=== PATIENT | male | born 1935 | race Caucasian/White ===

== ENCOUNTER 2020-09-28 09:36 | Outpatient (CLI) | payer OTHER, SELFPAY ==
--- NOTE | ~2020-09-28 | XR_ITS ---
XR chest 2V DATE: 09/28/2020 09:54 INDICATION: Shortness of breath. Chronic obstructive pulmonary disease. TECHNIQUE: PA and lateral views COMPARISON: 06/06/2019 portable AP chest FINDINGS: Status post sternotomy and probable coronary bypass graft surgery. Heart size is within nor mal range. There is aortic arch calcification, mild aortic unfolding. There is mild discoid atelectasis or more likely scarring in the lower lung zones. There is chronic b lunting of the costophrenic angles. No interval pulmonary consolidation, pleural effusion, pulmonary congestion or pneumothorax is eviden t. Diffuse osteopenia. Status post cholecystectomy. IMPRESSION: Status post sternotomy/CABG, cholecystectomy Chronic discoid atelectasis or scarring, lower lungs, chronic blunting of the costophrenic angles No apparent active disease or other significant change since 05/10/2019 Reviewed, dictated and finalized at location A. IMPRESSION: Status post sternotomy/CABG, cholecystectomy Chronic discoid atelectasis or scarring, lower lungs, chronic blunting of the c ostophrenic angles No apparent active disease or other significant change since 05/10/2019
== END 2020-09-28 09:37 | disposition home or self-care (01) ==
LOC: ANHIMG 09:43
PROVIDERS: PCP Family Medicine; Visit Provider Internal Medicine Critical Care Medicine
DX: J44.9 Chronic obstructive pulmonary disease, unspecified (principal); Z90.49 Acquired absence of other specified parts of digestive tract; R91.8 Other nonspecific abnormal finding of lung field
CPT/HCPCS: 71046

== ENCOUNTER 2020-10-10 13:27 | Outpatient (CLI) | payer OTHER, SELFPAY ==
--- NOTE | 2020-10-10 16:07 | WPDSIXMINUTE ---
Six Minute Walk Procedure Procedure Performed Pulmonary Stress Test (6 min walk) Six Minute Walk This is a 6 minutes walk test. The test was performed and interpreted in accordance with the 2014 ERS/ATS task force guidelines. Findings: The patient's resting room air oxygen saturation measured by pulse oximetry was 98% and her heart rate was 44 bpm. Patient ambulated for 366 meters and oxygen saturation remained 91 to 97%. Heart rate at the end of the study was 83 bpm. There are no prior studies for comparison.
--- NOTE | 2020-10-10 16:08 | WPDPFTINT ---
PFT Procedure Performed PFT Procedure Performed Spirometry with Pre/Post Bronchodilator Plethysmography (Lung Vol) Diffusing Cap (DLCO) Flow Vol Loop PFT Interpretation This is a pulmonary function test with pre and post-bronchodilator spirometry, plethysmography and diffusing capacity. The test was performed and results interpreted in accordance with the 2019 and 2005 ATS/ERS Task Force guidelines respectively using the Global Lung Function Initiative-2012 reference equations. Patient demonstrated good effort and cooperation. Reproducibility criteria were met. The quality of the pre bronchodilator spirometry maneuver was Grade A and post bronchodilator spirometry maneuver was Grade A. Findings: Spirometry: There is decreased maximal expiratory airflow at low lung volumes with a concave expiratory flow tracing. The contour the inspiratory flow tracing is normal. The pre bronchodilator FVC is 2.45 L, 70% predicted. The pre bronchodilator FEV1 is 1.74 L, 67% predicted. The FEV1: FVC ratio 71%. The post bronchodilator FVC is 2.44 L, representing no change. The post bronchodilator FEV1 is 1.86 L, representing a 7% increase. Plethysmography: The total lung capacity is 3.56 L, 53% predicted. The functional residual capacity is 2.00 L, 55% predicted. The residual volume is 1.11 L, 42% predicted. Diffusing capacity: The absolute diffusion capacity is 15.4, 70% predicted. The diffusing capacity corrected for alveolar volume is 4.53, 125% predicted. In comparison to the previous pulmonary function test in our laboratory from 12/14/2018 in which no bronchodilators were given there is a decrease in the FVC from 2.89 L to 2.45 L. There is a decrease in the FEV1 from 2.02 L to 1.74 L. There is a decrease in the total lung capacity from 4.72 L to 3.56 L. There is a decrease in the functional residual capacity from 2.55 L to 2.00 L. There is a decrease in the residual volume from 1.83 L to 1.11 L. The absolute diffusion capacity is unchanged from 17.0 to 15.4. The DLCO corrected for alveolar volume is unchanged from 4.35 to 4.53 Impression: There is a combined obstructive and restrictive ventilatory abnormality. There are no guidelines to assign the severity of obstruction and restriction with a combined abnormality. In my opinion, given the mildly concaved expiratory flow tracing and normal FEV1: FVC ratio and moderate restrictive abnormality I would state there is a mild obstructive abnormality and a moderate restrictive abnormality resulting in a moderately decreased FEV1. There is no significant improvement after inhaling a single dose of albuterol. The diffusing capacity is normal. in comparison to the previous pulmonary function test on 12/14/2018 there has been a greater than anticipated time dependent decrease in FVC, FEV1, total lung capacity, functional residual capacity, and residual volume with no change in the absolute diffusion capacity or the diffusing capacity corrected for alveolar volume. Clinical correlation is recommended.
== END 2020-10-10 13:28 | disposition home or self-care (01) ==
PROVIDERS: PCP Family Medicine; Visit Provider Internal Medicine Critical Care Medicine
DX: R06.02 Shortness of breath (principal); R94.2 Abnormal results of pulmonary function studies
CPT/HCPCS: 94060; 94726; 94729

== ENCOUNTER → 2020-11-09 08:26 | Outpatient (CLI) | payer OTHER, SELFPAY ==
--- NOTE | ~2020-11-09 | CT_ITS ---
EXAMINATION: CT chest high resolution wo dc EXAM DATE: 11/09/2020 08:51 INDICATION: J90 - Pleural effusion, not elsewhere classified. Lung cancer. Shortness of breath. Right lobectomy. TECHNIQUE: Spiral CT of the chest without contrast. HRCT. Axial, coronal and sagittal images of the chest were reviewed. Coronal maximum intensity pixel images of chest reviewed. The dose-length prod uct (DLP) for this examination was 536.91 mGy-cm. The exposure was tailored according to patient siz e (auto mA exposure control), and iterative reconstruction (ASIR) was used as additional dose reducti on technique. Comparison is made to prior examination from 04/25/2019. FINDINGS: Partial right pneumonectomy, probably right lower lobe. Scattered regions of bilateral sca rring. No suspicious lung opacities. No intralobular septal thickening. Trace right pleural effusion, interval improvement. Tracheobronchial tree is patent. There is no mediastinal, hilar or axillary lymphadenopathy. There is no pneumothorax. Scattered regions of periventricular endocardial fat density, prior infarctions. There are sternotomy wires, and cardiac/coronary surgical changes. Corre late with prior history. There are cholecystectomy clips. Large gastric cardial diverticulum. There is mild thoracic spondylosis without osteoblastic or osteolytic lesions identified. IMPRESSION: 1. Partial right pneumonectomy. 2. Trace right pleural effusion. 3. Scattered lung parenchymal scar. 4. 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 5. Large gastric cardial diverticulum. Reviewed, dictated and finalized at location B.
== END ==
PROVIDERS: PCP Family Medicine; Visit Provider Internal Medicine Critical Care Medicine
DX: J90 Pleural effusion, not elsewhere classified (principal); Z90.2 Acquired absence of lung [part of]; R06.00 Dyspnea, unspecified
CPT/HCPCS: 71250

== ENCOUNTER → 2020-12-04 00:17 | Outpatient (CLI) | payer OTHER, SELFPAY ==
[2020-12-04 17:12] LABS: SARS-CoV-2 RNA PCR Negative
== END ==
PROVIDERS: PCP Family Medicine; Visit Provider Specialist
DX: Z01.812 Encounter for preprocedural laboratory examination (principal); Z20.828 Contact with and (suspected) exposure to other viral communicable diseases
CPT/HCPCS: C9803; U0003; U0005

== ENCOUNTER 2020-12-07 00:25 | Day surgery (SDC) | payer OTHER, SELFPAY ==
[2020-12-07] VITALS (12 sets, daily range): BP systolic 110–146; BP diastolic 63–80; PULSE 66–82; RESP 14–16; TEMP 36.3–36.7; O2SAT 95–98; BMI 30.7
--- NOTE | ~2020-12-07 | XR_ITS ---
EXAMINATION: XR chest 1V portable INDICATION: Pacemaker insertion TECHNIQUE: Portable AP chest at 1422 hours COMPARISON: 09/28/2020 FINDINGS: There is a dual-lead cardiac pacemaker of the left chest wall with its leads in expected po sition. No pneumothorax is identified. There are small pleural effusions. Bibasilar airspace opacitie s are unchanged. Median sternotomy wires and mediastinal surgical clips are seen, likely from prior c oronary artery bypass grafting. IMPRESSION: 1. Pacemaker insertion without pneumothorax. 2. Small pleural effusions. 3. Bibasilar airspace opacities, consistent with atelectasis versus pneumonia. Reviewed, dictated and finalized at location B.
--- NOTE | ~2020-12-07 | XR_ITS ---
EXAMINATION: XR chest 2V EXAM DATE: 12/08/2020 14:07 INDICATION: 24 hours post pacemaker insertion. TECHNIQUE: Frontal and lateral projections of the chest obtained and reviewed. There is no prior juan manuel dy for comparison. FINDINGS: There is a dual lead pacemaker/AICD seen with leads projecting over the expected locations of the right atrial appendage and right ventricle. Sternotomy wires are present without findings to suggest sternal dehiscence. There are small bilateral pleural effusions. Some linear bibasilar atelec tasis. No pneumothorax. No confluent consolidation. Mild cardiomegaly. There are mild bony degenerati ve changes. IMPRESSION: 1. No evidence postprocedure pneumothorax. 2. Small bilateral pleural effusions. 3. Left basilar subsegmental atelectasis. 4. Cardiomegaly. Reviewed, dictated and finalized at location A.
--- NOTE | 2020-12-07 08:45 | SUR.PREOP ---
ARRIVES TO [facility] W/ AT SIDE FOR SCHEDULED PPM IMPLANT W/ DR. COKER. ORIENTED TO ROOM, POC, PROCEDURE. DENIES PAIN OR SOB ON ARRIVAL. IV STARTED, LABS COLLECTED, CONSENT SIGNED, SKIN PREP COMPLETED, VS OBTAINED, MEDS VERIFIED. PER PT'S , PT. WITH SOME EMOTIONAL DISTRESS DUE TO OF DOG YESTERDAY. REASSURANCE AND SUPPORT GIVEN. WILL CONTINUE TO MONITOR.
--- NOTE | 2020-12-07 08:58 | ECG_ITS ---
Measurements Intervals [place] Rate: 39 P: 74 MS: 296 QRS: -10 QRSD: 91 T: 77 QT: 456 QTc: 367 Interpretive Statements SINUS RHYTHM WITH SECOND DEGREE AV BLOCK, TYPE I ([place]) DELAYED PRECORDIAL R/S TRANSITION NONSPECIFIC ST & T-WAVE ABNORMALITY- HIGH LATERAL LEADS ABNORMAL ECG Electronically Signed On 12-07-2020 12:56:37 CDT by Jorge Britton D.O.
[2020-12-07 09:20] LABS: Basophils Percent Auto 0.3 % (0.2-1.2); Eosinophils Absolute Auto 0.1 K/mm3 (0-0.3); Eosinophils Percent Auto 0.9 % (0-4.4); Hematocrit 48.9 % (42.0-52.0); Hemoglobin 15.8 g/dL (14.0-18.0); Immature Granulocyte Absolute 0.02 K/mm3 (0.00-0.031); Immature Granulocyte Percent A 0.3 % (0-0.5); Lymphocytes Absolute Auto 0.82 K/mm3 (0.9-3.2); Mean Corpuscular HGB Conc 32.3 g/dl (32-36); Mean Corpuscular Volume 89.9 fl (80-100); Mean Platelet Volume 10.2 fl (7.4-10.4); Monocytes Absolute Auto 0.7 K/mm3 (0.1-0.6); Monocytes Percent Auto 8.7 % (2.6-8.5); Neutrophils Absolute Auto 5.9 K/mm3 (1.3-6.7); Neutrophils Percent Auto 78.8 % (45.5-73.1); Platelet Count Result 230 k/mm3 (150-375); Red Blood Count 5.44 M/mm3 (4.6-6.20); Red Cell Distribution Width 14.7 % (11.5-14.5); White Blood Count 7.4 K/mm3 (4.5-10.0)
[2020-12-07 09:28] LABS: Chloride 102 mmol/L (98-107)
[2020-12-07 09:29] LABS: Prothrombin Time 13.4 Seconds (11.1-14.7)
[2020-12-07 09:33] LABS: Anion Gap 8 mmol/L (8-16); Blood Urea Nitrogen 16 mg/dL (9-20); Calcium 9.7 mg/dL (8.4-10.2); Carbon Dioxide 27 mmol/L (22-30); Estimated Glomerular Filt Rate > 60; Glucose 117 mg/dL (75-110); Potassium 4.6 mmol/L (3.4-5.0); Sodium 137 mmol/L (137-145)
--- NOTE | 2020-12-07 09:55 | SUR.PREOP ---
DR. COKER AND LES FROM [employer] HERE TO SEE PT PRE PROCEDURE.
--- NOTE | 2020-12-07 10:05 | WPDMODSED ---
Moderate Sedation Note-Pt Data Patient Data Allergies Allergy/AdvReac Type Severity Reaction Status Date / Time Heparin Analogues Allergy Severe Heparin Verified 11/13/20 10:58 Analogues ([id number]) Penicillins Allergy Unknown Hives Verified 11/13/20 10:58 hydrocodone AdvReac Unknown hallucinati Verified 11/13/20 10:58 ons adhesive tape AdvReac skin Verified 11/13/20 10:58 blisters codeine AdvReac Hallucinati Verified 12/07/20 09:45 ng Home Medications Medication Instructions Recorded Confirmed Type aspirin 81 mg PO DAILY 05/09/19 12/07/20 History calcium polycarbophil [Fiber-Tabs] 1,250 mg PO BID 05/09/19 12/07/20 History cholecalciferol (vitamin D3) 5,000 unit PO DAILY 05/09/19 12/07/20 History [Vitamin D3] nitroglycerin 0.4 mg sublingual 0.4 mg SUBLINGUAL Q5M PRN 05/10/19 12/07/20 History tablet cholestyramine-aspartame 4 gram 4 g PO TID #231 gm 01/06/20 12/07/20 Rx oral powder olmesartan 40 1 tablet PO DAILY #90 tablet 02/16/20 12/07/20 Rx mg-hydrochlorothiazide 12.5 mg tablet hydralazine 10 mg tablet 10 mg PO BID #180 tablet 06/26/20 12/07/20 Rx omeprazole 40 mg capsule,delayed 40 mg PO DAILY #90 cap 06/26/20 12/07/20 Rx release tamsulosin 0.4 mg capsule 0.4 mg PO HS #90 cap 08/10/20 12/07/20 Rx furosemide 20 mg tablet 20 mg PO QAM #90 tablet 10/21/20 12/07/20 Rx gabapentin 300 mg PO QID 12/07/20 12/07/20 History simvastatin 10 mg PO HS 12/07/20 12/07/20 History Sedation/Anesthesia: No previous sedation/anesthesia problems (including family history). [facility] Past Medical History Medical History (Updated 11/17/20 @ 20:17 by Kallie Cortez MD) (HFpEF) heart failure with preserved ejection fraction Benign hypertension Bleeding hemorrhoids CAD (coronary artery disease) Lung cancer Mixed hyperlipidemia HUMEBRTO (obstructive sleep apnea) PAF (paroxysmal atrial fibrillation) Pleural effusion Pleural effusion on right Surgical History Surgical History H/O hernia repair History of lobectomy of lung Hx laparoscopic cholecystectomy S/P CABG x 3 S/P hemorrhoidectomy Family History Family History Mother Family history of cardiovascular disease Family history of heart disease in male family member before age 55, Onset Age: 57 Patient's mother is Father Cerebrovascular accident, Onset Age: 80 Patient's father is Sibling Family history of heart disease in male family member before age 55 Social History Social History (Updated 11/13/20 @ 10:59 by Erin Dupont) Social History: Smoking packs per day: 1 Smoking cigarettes per day: 20.0 Years smoked: 12 Smoking pack-years: 12.00 Smoking status: Former smoker Tobacco type: cigarettes Second hand tobacco smoke exposure: No Smoking end date: 06/08/1967 Alcohol intake: never Substance use: never Substance use type: does not use Gender identity (if verbalized by the patient): Male Mod Sed Physical Exam Physical Exam Pre Procedural Exam: Normal: Appearance, Neck, Throat, Airway, Lungs, Heart Size, Heart Rate, Heart Rhythm and Extremities Hours since solid foods: 12 Hours since liquid intake: 12 Internal Medicine - PN: Obj Da Labs CBC & Chem 7: 12/07/20 09:04 12/07/20 09:04 Labs: Laboratory Results - last 24 hr 12/07/20 12/07/20 12/07/20 09:04 09:04 09:04 WBC 7.4 RBC 5.44 Hgb 15.8 Hct 48.9 MCV 89.9 MCH 29.0 MCHC 32.3 RDW 14.7 H Plt Count 230 MPV 10.2 Immature Gran % (Auto) 0.3 Neut % (Auto) 78.8 H Lymph % (Auto) 11.0 L [place] % (Auto) 8.7 H Eos % (Auto) 0.9 Baso % (Auto) 0.3 Lymph # (Auto) 0.82 L [place] # (Auto) 0.7 H Eos # (Auto) 0.1 Baso # (Auto) 0.0 Abs Immat Gran (auto) 0.02 Absolute Neuts (auto) 5.9 Absol
--- NOTE | 2020-12-07 13:50 | ECG_ITS ---
Measurements Intervals [place] Rate: 76 P: 191 NV: 134 QRS: -66 QRSD: 169 T: 91 QT: 446 QTc: 502 Interpretive Statements ELECTRONIC ATRIAL PACEMAKER ELECTRONIC VENTRICULAR PACEMAKER NO FURTHER INTERPRETATION IS POSSIBLE ATYPICAL ECG Electronically Signed On 12-07-2020 15:43:49 CDT by Jorge Britton D.O.
--- NOTE | 2020-12-07 13:52 | WPDCARDPROC ---
Cardiac Cath Procedure Note Date of procedure:: 12/07/20 Performing physician:: Jaden Pineda MD Indication:: symptomatic bradycardia with second-degree AV block Brief clinical history:: this is an 85-year-old man who has coronary artery disease who has been noted as an outpatient for a couple of years to have second-degree AV block which heretofore has been asymptomatic. He now has symptoms of presyncope and evidence of worsening AV conduction primarily with 2-1 conduction and affective heart rates in the mid 30s. For this reason permanent pacemaker implant was recommended. Procedure Procedure performed:: Permanent dual-chamber pacemaker Sedation/Medication given:: fentanyl 50 mg Versed 2 mg case start time 1:02 p.m. case end time 1:40 p.m. sedation provided by April Forde RN, trained observer Access site:: left subclavian vein Estimated blood loss:: 15-20 cc Procedure note:: patient was brought to the cardiac catheterization lab in the postabsorptive state the left anterior chest wall was prepped and draped in the usual sterile fashion. Anesthesia was given with 1% lidocaine below the clavicle and then an incision was made in this region 1 in below the clavicle from the midclavicular line to the deltopectoral groove. Sharp and blunt dissection was used to separate the subcutaneous tissue electrocautery was used to provide cutaneous hemostasis. The prepectoral fascial plane was identified and using blunt dissection a pacemaker pocket was created along the fascial plane inferior to the incision. This was then packed with antibiotic soaked 4 x 4. Following this attention was turned to venous access. Using the 2 introducer kit provided 2 separate punctures were made of the left subclavian vein and the introducer wires were placed into the venous circulation under fluoroscopic visualization to the level of the right atrium. Using the 2 safe sheaths provided the pacemaker leads detailed below were advanced into the venous circulation at down into the level of the right atrium and the IVC. Attention was then turned to the ventricular lead. The stylet was withdrawn and a 3 cc syringe was used to formulate a J-tip stylet which was used to steer the lead through the right ventricle out into the pulmonary artery position. This stylette was then withdrawn and a straight stylet was placed in the lead was withdrawn and placed into the right ventricular apex. A the fixation screw was deployed appropriate pacing and sensing performance was demonstrated. A 10 volt stimulation showed no sign of extracardiac stimulation. Following this attention was turned to the atrial lead. The straight stylet was withdrawn a preformed J was placed in to the lead and it was positioned in the right atrial appendage. Following this the fixation screw was deployed and upon withdrawal of the stylet the lead tip was fixed into position. The analyzer was then used to test this lead and a once again appropriate sensing and pacing was demonstrated as detailed below and a 10 volt stimulation showed no extracardiac stimulation. The leads were then secured to the base of the pocket using 2 0 silk ties with the suture sleeves on the leads. Following this the which changed sponge was removed from pocket which was then irrigated with vancomycin infused saline. The pacemaker generator was then connected to the leads using the supplied torque wrench the entire assembly was placed into the newly created pocket which was then closed in layers using 3 0 Vicryl in an interrupted fashion for the subcutaneous tissue in 4 0 Vicryl in a running subcuticular fashion for the skin. The wound was dressed with an Aquacel dressing patient was taken back to the holding area for post pacemaker implant recovery. He tolerated procedure well there were no apparent complications postop EKG and chest x-ray were ordered as well as postop antibiotics. Findings:: The patient received a Biotronik dual-
--- NOTE | 2020-12-07 14:15 | SUR.PHASEII ---
RETURNS TO POWER SYSTEM DISPATCHER 7 S/P INSERTION OF DUAL LEAD BIOTRONIK PPM L. UPPER CHEST W/ DR. COKER. AWAKE AND ALERT. DENIES CP OR SOB. REVIEWED POST OP ORDERS AND PLAN OF CARE. MONITOR AV PACED. AQUACEL AG DRESSING C/D/I TO L. UPPER CHEST. NO REDNESS OR SWELLING AROUND SITE. NO DRAINAGE OR BLEEDING NOTED. L. RADIAL PULSE STRONG. POST OP EKG AND PCXR WILL BE COMPLETED. WILL CONTINUE TO MONITOR.
--- NOTE | 2020-12-07 15:15 | SUR.PHASEII ---
PHASE II RECOVERY COMPLETE. TO ENTER EXTENDED RECOVERY POST OUTPATIENT PROCEDURE AT THIS TIME. SEE PCS DOCUMENTATION FOR FURTHER CHARTING. PT. TO REMAIN IN FEED HOUSE SUPERVISOR 7 AT THIS TIME, BUT WILL BE TRANSFERRING TO IMU 201 FOR DURATION OF STAY. PT. AND ARE AWARE. NO CHANGE IN L. UPPER CHEST SITE. IMMOBILIZER IS ON L. ARM FOR SUPPORT. WILL CONTINUE TO MONITOR.
--- NOTE | 2020-12-07 15:16 | ADMGEN ---
This patient, Rosales Guerrero, was admitted to EXTENDED RECOVERY AFTER OUTPATIENT PROCEDURE STATUS AT THIS TIME. WILL BE TRANSFERRING TO IMU Room 201-01 FOR DURATION OF STAY. CURRENTLY IN [facility] PACKER 7 POST PHASE 2 RECOVERY. Patient/family oriented to hospital policies and general routines including ID bracelet, bed and alarms, visiting hours, pain management, procedures, bathroom and other care routines, personal items, smoking policy, room service/diet, and visiting hours. Information on how to activate the Rapid Response Team has been discussed. Patient/Family are encouraged to report perceived risks to care and to ask questions if they do not understand what they are told or what they should do.
--- NOTE | 2020-12-07 17:00 | PC.NURSE ---
REPORT CALLED TO JENNIFER SAUCEDA IN IMU. PT. IS TO TRANSFER TO IMU 201 FOR DURATION OF EXTENDED RECOVERY STAY POST INSERTION OF PPM. PT. AND AWARE.
--- NOTE | 2020-12-07 17:15 | PC.NURSE ---
TRANSFERRED TO NEW ROOM, IMU 201, VIA BED ON TELE MONITOR TO COMPLETE HOSPITAL STAY POST INSERTION OF PPM. AWAKE AND ALERT. DENIES PAIN OR SOB. IMMOBILIZER IS ON L. ARM FOR SUPPORT. AQUACEL AG DRESSING TO L. UPPER CHEST C/D/I. NO REDNESS, SWELLING OR DRAINAGE PRESENT. VSS. MONITOR AV PACED. ORIENTED TO NEW ROOM. AT SIDE. REPOSITIONED FOR COMFORT. BEDREST CONTINUES. OBSERVED DRESSING SITE W/ JENNIFER SAUCEDA. NO DISTRESS NOTED.
[2020-12-07] MEDS: SODIUM CHLORIDE 0.9% IV 1,000 ML 50 ML IV CONT (17:42)
[2020-12-07] MEDS: calcium polycarbophiL 625 MG TABLET 1250 MG PO (17:54)
[2020-12-07] MEDS: CHOLESTYRAMINE LIGHT 4 GM POWD.PACK PO (17:54)
[2020-12-07] MEDS: hydrALAZINE 10 MG TABLET PO (17:54)
[2020-12-07] MEDS: GABAPENTIN 300 MG CAPSULE PO (17:54)
[2020-12-08] VITALS (7 sets, daily range): BP systolic 116–139; BP diastolic 67–74; PULSE 60–77; RESP 16–18; TEMP 36.3–37.1; O2SAT 94–96
[2020-12-08] MEDS: FUROSEMIDE 20 MG TABLET PO (08:44)
[2020-12-08] MEDS: GABAPENTIN 300 MG CAPSULE PO ×2 (08:44→15:12)
[2020-12-08] MEDS: ASPIRIN 81 MG ENTERIC TABLET PO (08:45)
[2020-12-08] MEDS: TAMSULOSIN HCL 0.4 MG CAPSULE PO (08:46)
[2020-12-08] MEDS: OLMESARTAN MEDOXOMIL 20 MG TABLET 40 MG PO (08:46)
[2020-12-08] MEDS: PANTOPRAZOLE 40 MG TABLET PO (08:47)
[2020-12-08] MEDS: hydroCHLOROthiazide 12.5 MG CAPSULE PO (08:48)
[2020-12-08] MEDS: hydrALAZINE 10 MG TABLET PO (08:48)
[2020-12-08] MEDS: calcium polycarbophiL 625 MG TABLET 1250 MG PO (08:48)
--- NOTE | 2020-12-08 09:14 | PM.PNCARD ---
Progress Note: A&P Additional Plan 85-year-old man with: Symptomatic bradycardia with high-grade AV block resulting in need for implantation of dual-chamber pacemaker. Patient is doing well following implant yesterday. He appears to be a good candidate for discharge this morning. I will allow him to get off of bed rest at this time to remove his immobilizer and make plans for discharge. He can be seen in the office next week Thursday for dressing removal and spoke to the patient about activity restrictions which primarily include no raising the left upper extremity above 90? and no driving until further notice. Jaden Pineda MD [facility] Subjective Date/time seen: Date of service:12/08/20 09:14 Interval history: follow-up visit in this 85-year-old man with: Symptomatic bradycardia with high-grade AV block resulting in need for implantation of dual-chamber pacemaker device. Patient is doing well this morning following implant yesterday. Also has coronary artery disease with previous surgical revascularization doing well with no recent ischemic issues. Exam Const: General: comfortable and no acute distress HENMT: Mouth: Yes moist mucous membranes Eyes: Sclera: sclerae normal Pupils: Equal, round and reactive pupils present Neck: Neck: supple and no JVD Resp: Effort & Inspection: normal respiratory effort Auscultation: clear to auscultation bilaterally Other: Pacemaker dressing is clean and dry Cardio: Rate: regular rate Rhythm: regular rhythm Other: very soft systolic murmur does not radiate from the left sternal border. GI: GI Palp: Yes Soft to palpation Auscultation: normal bowel sounds Skin: General skin exam: normal color Neuro: Cognition (Neuro): normal cognition Extrem: General: normal to inspection Objective Data Vital Signs Vital Signs: Vital Signs - 24 hr 12/07/20 14:15 12/07/20 14:30 12/07/20 14:45 Temperature 36.4 C L Pulse Rate 82 82 69 Respiratory Rate 14 16 14 Blood Pressure 116/80 117/75 113/70 Pulse Oximetry 96 96 96 12/07/20 15:00 12/07/20 15:30 12/07/20 16:00 Temperature Pulse Rate 71 73 70 Respiratory Rate 16 16 Blood Pressure 120/63 110/68 Pulse Oximetry 96 97 12/07/20 16:30 12/07/20 18:00 12/07/20 18:31 Temperature 36.4 C 36.6 C Pulse Rate 67 73 73 Respiratory Rate 16 16 Blood Pressure 117/75 136/63 Pulse Oximetry 96 98 12/07/20 20:00 12/07/20 22:00 12/08/20 00:00 Temperature 36.7 C 37.0 C Pulse Rate 75 67 69 Respiratory Rate 16 17 Blood Pressure 131/67 116/74 Pulse Oximetry 95 94 12/08/20 04:00 12/08/20 06:00 12/08/20 08:00 Temperature 37.1 C 36.3 C L Pulse Rate 75 66 60 Respiratory Rate 17 16 Blood Pressure 139/67 132/69 Pulse Oximetry 94 96 Intake/Output Intake/Output: Intake & Output 12/05/20 12/06/20 12/07/20 12/08/20 23:59 23:59 23:59 23:59 Intake Total 390 Output Total 300 Balance 90 Meds/Results Medications: Active Medications Generic Name Dose Route Start Last Admin Trade Name Freq PRN Reason Stop Dose Admin Acetaminophen 650 mg 12/07/20 15:36 Acetaminophen 325 Mg Tablet PO Q4H PRN Pain Aspirin 81 mg 12/08/20 09:00 12/08/20 08:45 Aspirin 81 Mg Enteric Tablet PO 81 mg DAILY CLEMENCIA Administration Calcium Polycarbophil 1,250 mg 12/07/20 17:00 12/08/20 08:48 Calcium Polycarbophil 625 Mg Tablet PO 1,250 mg BID CLEMENCIA Administration Cholestyramine Resin 4 gm 12/07/20 19:00 12/07/20 17:54 Cholestyramine Light 4 Gm Powd.Pack PO 4 gm 1000,1400,1900 CLEMENCIA Administration Furosemide 20 mg 12/08/20 09:00 12/08/20 08:44 Furosemide 20 Mg Tablet PO 20 mg QAM CLEMENCIA Administration Gabapentin 300 mg 12/07/20 17:00 12/08/20 08:44 Gabapentin 300 Mg Capsule PO 300 mg QID CLEMENCIA Administration Hydralazine HCl 10 mg 12/07/20 17:00 12/08/20 08:48 Hydralazine 10 Mg Tablet PO 10 mg BID CLEMENCIA Administration Hydrochlorothiaz
--- NOTE | 2020-12-08 09:17 | PM.DS ---
DS: Admitting Diagnosis Admitting Diagnosis Admitting Diagnosis: symptomatic AV block need for pacemaker implant DS: Discharge Diagnosis Discharge Diagnosis (1) AV block, Mobitz II: Code(s): I44.1 - Atrioventricular block, second degree Status: Acute DS: Summary Hospital Course Reason for hospitalization: pacemaker implant Hospital Course: this is an 85-year-old man with a history of coronary disease and a remote history of surgical revascularization. He has been known for a number of years to have AV block with asymptomatic bradycardia and Mobitz type 1 second-degree AV block. Recently became symptomatic with bradycardia of episodes of Mobitz type two av block and for this reason implantation of a permanent pacemaker device was recommended. The patient received Biotronik dual chamber device on the afternoon of admission without complication. The is stable and a good candidate for discharge thia AM . Follow up in the office is scheduled for dressing removal next week Status at Discharge Functional status at discharge: independent ambulation Overall status at discharge: patient is back to baseline Time Spent with Patient Time attestation: Total time spent providing and/or coordinating discharge services: Exam Const: General: comfortable and no acute distress HENMT: Mouth: Yes moist mucous membranes Eyes: Sclera: sclerae normal Pupils: Equal, round and reactive pupils present Neck: Neck: supple and no JVD Other: Normal carotid upstrokes, no bruit Resp: Effort & Inspection: normal respiratory effort Auscultation: clear to auscultation bilaterally Cardio: Rate: regular rate Rhythm: regular rhythm Other: pacemaker incision is clean and dry GI: GI Palp: Yes Soft to palpation Auscultation: normal bowel sounds Skin: General skin exam: normal color Extrem: General: normal to inspection DS: Data Data Completed and Pending Labs on day of discharge: Labs from last 24 hours 12/07/20 12/07/20 12/07/20 09:04 09:04 09:04 WBC 7.4 RBC 5.44 Hgb 15.8 Hct 48.9 MCV 89.9 MCH 29.0 MCHC 32.3 RDW 14.7 H Plt Count 230 MPV 10.2 Immature Gran % (Auto) 0.3 Neut % (Auto) 78.8 H Lymph % (Auto) 11.0 L [place] % (Auto) 8.7 H Eos % (Auto) 0.9 Baso % (Auto) 0.3 Lymph # (Auto) 0.82 L [place] # (Auto) 0.7 H Eos # (Auto) 0.1 Baso # (Auto) 0.0 Abs Immat Gran (auto) 0.02 Absolute Neuts (auto) 5.9 Absolute Nucleated RBC 0.0 Nucleated RBC % 0.0 PT 13.4 INR 1.0 Sodium 137 Potassium 4.6 Chloride 102 Carbon Dioxide 27 Anion Gap 8 BUN 16 Creatinine 0.90 Estim Creat Clear Calc Not Reportable Estimated GFR > 60 Glucose 117 H Calcium 9.7 Discharge Plan Discharge Patient Disposition: Home, Self-Care Discharge Instructions: [facility] [address] [place] [address] DISCHARGE INSTRUCTIONS - POST PACEMAKER Activity 1. No driving until you are seen in the office for your incision check. 2. No lifting, pushing or pulling more than 5 pounds with affected arm for 1 MONTH 3. No lifting affected arm above shoulder height for 1 MONTH 4. Wear immobilizer/sling only if you are unable to remember the above activity restrictions. Recommend that it be worn at night. 5. You may shower AFTER you are seen for incision check on 12/14/20 at 11:15 but no tub baths, swimming pool or hot tub for 1MONTH Wound Care 1. Do
== END 2020-12-08 15:50 | disposition home or self-care (01) ==
LOC: ANHCATHLAB 15:43 → ANHIMU 15:46
PROVIDERS: PCP Family Medicine; Visit Provider Specialist
PROC: 0JH606Z Insertion of Pacemaker, Dual Chamber into Chest Subcutaneous Tissue and Fascia, Open Approach (ICD-10-PCS; CPT 33208; principal; 2020-12-07 10:00)
DX: I44.1 Atrioventricular block, second degree (principal); R00.1 Bradycardia, unspecified; R55 Syncope and collapse; I25.10 Atherosclerotic heart disease of native coronary artery without angina pectoris; I10 Essential (primary) hypertension; E78.2 Mixed hyperlipidemia; I48.0 Paroxysmal atrial fibrillation; G47.33 Obstructive sleep apnea (adult) (pediatric); Z85.118 Personal history of other malignant neoplasm of bronchus and lung; Z95.1 Presence of aortocoronary bypass graft; Z90.2 Acquired absence of lung [part of]; Z87.891 Personal history of nicotine dependence
CPT/HCPCS: 33208; 36415; 71045; 71046; 80048; 85025; 85610; 93005; A9270; C1779; C1785; C9803; J2250; J3010; J3370; J7030; J7040; U0003; U0005

== ENCOUNTER → 2021-11-22 08:47 | Outpatient (CLI) | payer OTHER, SELFPAY ==
--- NOTE | ~2021-11-22 | XR_ITS ---
XR chest 2V 11/22/2021 09:02 Indication: Malignant neoplasm Procedure: 2 view chest Comparison: Comparison to multiple prior studies sequentially, with oldest reviewed study dated 09/28. Findings: There are chronic bibasilar infiltrates. There is small pleural effusions versus pleural th ickening, unchanged. Status post median sternotomy for CABG. Borderline heart size. No pneumothorax. No edema. Impression: 1: Chronic bibasilar infiltrates which most likely represent atelectasis/scarring. 2: Small pleural effusions versus pleural thickening. Reviewed, dictated and finalized at location A. Impression: 1: Chronic bibasilar infiltrates which most likely represent atelectasis/scarri ng. 2: Small pleural effusions versus pleural thickening.
== END ==
PROVIDERS: PCP Family Medicine; Visit Provider Nurse Practitioner Gerontology
DX: C34.90 Malignant neoplasm of unspecified part of unspecified bronchus or lung (principal); J90 Pleural effusion, not elsewhere classified
CPT/HCPCS: 71046

== ENCOUNTER 2021-12-09 06:13 | Day surgery (SDC) | payer OTHER, SELFPAY ==
[2021-12-09] VITALS (9 sets, daily range): BP systolic 100–131; BP diastolic 45–65; PULSE 69–110; RESP 13–20; TEMP 36.2–37.6; O2SAT 95–100
--- NOTE | ~2021-12-09 | CT_ITS ---
EXAMINATION: CT abdomen pelvis w con DATE: 12/09/2021 08:28 INDICATION: Right lower quadrant abdominal pain TECHNIQUE: Computed tomography (CT) of the abdomen and pelvis was performed with 100 CC Omnipaque 300 intravenous contrast. Automated exposure control and iterative reconstruction technique were employe d. Exam dose: 1081.07 mGy-cm total exam DLP. COMPARISON: 12/02/2018 PET/CT/CT scan 09/08/2017 CT abdomen pelvis FINDINGS: Status post partial pneumonectomy on the right for history of lung carcinoma. There is atelectasis in the lower lung zones involving the lingula, right lower lobe and to greatest extent the dependent left lower lobe. Status post sternotomy. Prominent coronary artery calcifications Right atrial and ventricular pacemaker leads. Minimal dependent right pleural effusion, possibly loculated. Mild bilateral gynecomastia. Status post cholecystectomy. The liver and spleen, pancreas, bile ducts and pancreatic duct are unrem arkable. Normal morphology of the adrenal glands. Small right renal cortical cyst. No other renal space occupying mass lesion. No ureteral calculus or hydroureteronephrosis. There is atherosclerotic calcification of the abdominal aorta but no aneurysm. No intraperitoneal or retroperitoneal or pelvic mass lesion or adenopathy or ascites. There is prominent prostate enlargement as well as some prostate calcifications. There is moderate di ffuse thickening of the urinary bladder wall likely secondary to prostatomegaly. There is a prominent posterior gastric fundic diverticulum with air-fluid level. The appendix is dilated up to 8.7 mm diameter with mild periappendiceal fat stranding, consistent wit h acute: Appendicitis. There is diverticulosis of left and right colon; no CT evidence of diverticulitis. No bowel obstructi on is noted. No intraperitoneal free air. IMPRESSION: Acute appendicitis, with mild periappendiceal inflammation Prominent posterior gastric fundic diverticulum Status post cholecystectomy Hepatic steatosis Diverticulosis of left and right colon; no CT evidence of diverticulitis Prostatomegaly Reviewed, dictated and finalized at Location [facility]. Reviewed, dictated and finalized at location A.
--- NOTE | ~2021-12-09 | XR_ITS ---
XR chest 1V portable DATE: 12/09/2021 09:39 INDICATION: Shaking. History of lung cancer, status post right lobectomy TECHNIQUE: Portable upright AP chest on 12/2021 at 0935 hours COMPARISON: 11/22/2021 2 view chest FINDINGS: This is a limited apical lordotic portable single AP view. Left dual-lead pacemaker device with leads overlying right atrium and right ventricle. Status post st ernotomy. Heart size is likely within normal range considering magnification associated with AP projection. Mild patchy infiltrate is suggested in both lower lung zones. No pneumothorax. Pulmonary vascularity appears within normal range. Cannot exclude small pleural effusions. Diffuse osteopenia. IMPRESSION: Limited examination suggesting bilateral lower lung infiltrate or atelectasis Reviewed, dictated and finalized at location A. IMPRESSION: Limited examination suggesting bilateral lower lung infiltrate or a telectasis
--- NOTE | 2021-12-09 06:45 | PC.NURSE ---
This RN attempted IV access x2, no success. another RN to try
--- NOTE | 2021-12-09 07:12 | ED.ABDPAIN ---
HPI - Abdominal Pain General Chief Complaint: Abdominal Pain Stated Complaint: vomiting Time Seen by Provider: 12/09/21 07:05 History of Present Illness HPI narrative: pt started yesterday n/v/constipation and rlq pain no travel/sick contacts for this but ? exposure to small child with covid no other cp/sob/f/uri but shaking with this no d/urine chagnes/trauma and still has his appendix Related Data Home Medications Medication Instructions Recorded Confirmed aspirin 81 mg tablet,delayed 81 mg PO DAILY 05/09/19 11/18/21 release calcium polycarbophil 625 mg 1,250 mg PO BID 05/09/19 11/18/21 tablet (Fiber-Tabs) cholecalciferol (vitamin D3) 125 5,000 unit PO DAILY 05/09/19 11/18/21 mcg (5,000 unit) tablet (Vitamin D3) Allergies Allergy/AdvReac Type Severity Reaction Status Date / Time Heparin Analogues Allergy Severe Heparin Verified 11/18/21 09:08 Analogues ([id number]) Penicillins Allergy Unknown Hives Verified 11/18/21 09:08 hydrocodone AdvReac Unknown hallucinati Verified 11/18/21 09:08 ons adhesive tape AdvReac skin Verified 11/18/21 09:08 blisters codeine AdvReac Hallucinati Verified 11/18/21 09:08 ng Review of Systems Constitutional: Comments: CONSTITUTIONAL: Denies fever, chills, or sweats. EYES: Denies visual changes, redness, or discharge. ENT: Denies rhinorrhea, congestion, sore throat, or otalgia. CARDIOVASCULAR: Denies chest pain, palpitations, or edema. RESPIRATORY: Denies cough or dyspnea. GASTROINTESTINAL: has abdominal pain, nausea, vomiting, no diarrhea. GENITOURINARY: Denies dysuria or hematuria. SKIN: Denies rash or itching. MUSCULOSKELETAL: Denies back pain, joint pain, or myalgia. NEUROLOGIC: Denies headache, numbness, or weakness. PSYCHIATRIC: Denies anxiety or depression. [facility] Past Medical History Medical History (Updated 12/09/21 @ 09:03 by Yary Sy MD) (HFpEF) heart failure with preserved ejection fraction AV block, Mobitz II Benign hypertension Bleeding hemorrhoids CAD (coronary artery disease) History of tobacco use Lumbar sprain Lung cancer Mixed hyperlipidemia Non-small cell lung cancer HUMBERTO (obstructive sleep apnea) PAF (paroxysmal atrial fibrillation) Pleural effusion Pleural effusion on right Prediabetes URI (upper respiratory infection) Surgical History Surgical History H/O hernia repair History of lobectomy of lung Hx laparoscopic cholecystectomy Presence of aortocoronary bypass graft S/P CABG x 3 S/P hemorrhoidectomy Family History Family History Mother Family history of cardiovascular disease Family history of heart disease in male family member before age 55, Onset Age: 57 Patient's mother is Father Cerebrovascular accident, Onset Age: 80 Patient's father is Sibling Family history of heart disease in male family member before age 55 Social History Social History (Updated 11/18/21 @ 09:09 by Erin Dupont) Social History: Smoking packs per day: 1 Smoking cigarettes per day: 20.0 Years smoked: 10 Smoking pack-years: 10.00 Smoking status: Never smoker Tobacco type: cigarettes and pipe Second hand tobacco smoke exposure: Yes Smoking end date: 12/06/74 Additional smoking assessment comments: QUIT CLOSE TO 50 YEARS AGO Alcohol intake: never Substance use: never Substance use type: does not use Additional living arrangements comments: LIVES WITH DIONNE. Gender identity (if verbalized by the patient): Male Sexual Orientation (if Verbalized by the Patient): Straight or Heterosexual Spiritual care concerns: No Exam Const: Other: APPEARANCE: Well appearing, no pain in distress, well-nourished. Head normocephalic atraumtaic. EYES: PERRLA/EOMI, conjunctivae very clear. NOSE: Normal no drainage EARS:TMS clear Art
[2021-12-09 07:21] LABS: Basophils Percent Auto 0.2 % (0.2-1.2); Eosinophils Percent Auto 0.1 % (0-4.4); Hematocrit 47.1 % (42.0-52.0); Hemoglobin 15.8 g/dL (14.0-18.0); Immature Granulocyte Absolute 0.04 K/mm3 (0.00-0.031); Immature Granulocyte Percent A 0.3 % (0-0.5); Lymphocytes Absolute Auto 0.15 K/mm3 (0.9-3.2); Lymphocytes Percent Auto 1.3 % (18.3-44.2); Mean Corpuscular HGB Conc 33.5 g/dl (32-36); Mean Corpuscular Hemoglobin 29.6 pg (26-34); Mean Corpuscular Volume 88.2 fl (80-100); Mean Platelet Volume 10.1 fl (7.4-10.4); Monocytes Absolute Auto 0.2 K/mm3 (0.1-0.6); Monocytes Percent Auto 1.8 % (2.6-8.5); Neutrophils Absolute Auto 11.1 K/mm3 (1.3-6.7); Neutrophils Percent Auto 96.3 % (45.5-73.1); Platelet Count Result 192 k/mm3 (150-375); Red Blood Count 5.34 M/mm3 (4.6-6.20); Red Cell Distribution Width 14.1 % (11.5-14.5); White Blood Count 11.5 K/mm3 (4.5-10.0)
[2021-12-09 07:31] LABS: Alanine Aminotransferase 28 U/L (6-50); Albumin Level 4.3 g/dL (3.5-5.1); Alkaline Phosphatase 100 U/L (38-126); Anion Gap 12 mmol/L (8-16); Aspartate Amino Transferase 27 U/L (17-59); Blood Urea Nitrogen 21 mg/dL (9-20); Carbon Dioxide 17 mmol/L (22-30); Chloride 104 mmol/L (98-107); Estimated Glomerular Filt Rate > 60; Glucose 139 mg/dL (65-110); Lipase 83 U/L (23-300); Potassium 3.8 mmol/L (3.4-5.0); Sodium 133 mmol/L (137-145)
[2021-12-09] MEDS: SODIUM CHLORIDE 0.9% IV 1,000 ML 999 ML IV CONT (07:31)
[2021-12-09] MEDS: fentaNYL CITRATE INJ (*CRX) 100 MCG/2 ML VIAL 50 MCG IV PUSH (07:31)
[2021-12-09] MEDS: ONDANSETRON INJ 4 MG/2 ML VIAL IV PUSH (07:31)
[2021-12-09 07:58] LABS: SARS-CoV-2 RNA PCR Negative
--- NOTE | 2021-12-09 09:26 | ECG_ITS ---
Measurements Intervals [place] Rate: 87 P: 74 MS: 130 QRS: -80 QRSD: 170 T: 109 QT: 400 QTc: 482 Interpretive Statements ELECTRONIC ATRIAL PACEMAKER WITH INHIBITIONI ELECTRONIC VENTRICULAR PACEMAKER BASELINE ARTIFACT- I, V1 NO FURTHER INTERPRETATION IS POSSIBLE ATYPICAL ECG Electronically Signed On 12-09-2021 15:14:26 CDT by Jorge Britton D.O.
--- NOTE | 2021-12-09 09:46 | PM.SD2 ---
Same Day Admit/Disch: HPI History of Present Illness Chief complaint: vomiting,Right lower quadrant abdominal pain Narrative: Rosales Guerrero is a 86 year old male who yesterday started noticing right lower quadrant abdominal pain as well as nausea and vomiting. This persisted and he came to the emergency room. Evaluation there showed an elevated white count of 11,500. He had tenderness in the right lower quadrant. CT scan shows early acute appendicitis. He is taken to surgery now for laparoscopic appendectomy. [facility] Past Medical History Medical History (HFpEF) heart failure with preserved ejection fraction AV block, Mobitz II Benign hypertension Bleeding hemorrhoids CAD (coronary artery disease) History of tobacco use Lumbar sprain Lung cancer Mixed hyperlipidemia Non-small cell lung cancer HUMBERTO (obstructive sleep apnea) PAF (paroxysmal atrial fibrillation) Pleural effusion Pleural effusion on right Prediabetes URI (upper respiratory infection) Surgical History Surgical History H/O hernia repair History of lobectomy of lung Hx laparoscopic cholecystectomy Presence of aortocoronary bypass graft S/P CABG x 3 S/P hemorrhoidectomy Family History Family History Mother Family history of cardiovascular disease Family history of heart disease in male family member before age 55, Onset Age: 57 Patient's mother is Father Cerebrovascular accident, Onset Age: 80 Patient's father is Sibling Family history of heart disease in male family member before age 55 Social History Social History Social History: Smoking packs per day: 1 Smoking cigarettes per day: 20.0 Years smoked: 10 Smoking pack-years: 10.00 Smoking status: Never smoker Tobacco type: cigarettes and pipe Second hand tobacco smoke exposure: Yes Smoking end date: 12/06/74 Additional smoking assessment comments: QUIT CLOSE TO 50 YEARS AGO Alcohol intake: never Substance use: never Substance use type: does not use Additional living arrangements comments: LIVES WITH DIONNE. Gender identity (if verbalized by the patient): Male Sexual Orientation (if Verbalized by the Patient): Straight or Heterosexual Spiritual care concerns: No Same Day Admit/Disch: Med Pre-admit Medications Home Medications Medication Instructions Recorded Confirmed Type aspirin 81 mg tablet,delayed 81 mg PO DAILY 05/09/19 11/18/21 History release calcium polycarbophil 625 mg 1,250 mg PO BID 05/09/19 11/18/21 History tablet (Fiber-Tabs) cholecalciferol (vitamin D3) 125 5,000 unit PO DAILY 05/09/19 11/18/21 History mcg (5,000 unit) tablet (Vitamin D3) furosemide 20 mg tablet See Rx Instructions .Route 10/23/21 11/18/21 Rx .COMPLEX #90 tabs hydralazine 10 mg tablet See Rx Instructions .Route 10/23/21 11/18/21 Rx .COMPLEX #180 tabs omeprazole 40 mg capsule,delayed See Rx Instructions .Route 10/23/21 11/18/21 Rx release .COMPLEX #90 caps olmesartan 40 1 tablet PO DAILY #90 tabs 11/18/21 11/18/21 Rx mg-hydrochlorothiazide 12.5 mg tablet simvastatin 10 mg tablet See Rx Instructions .Route 11/18/21 11/18/21 Rx .COMPLEX #90 tabs gabapentin 300 mg capsule See Rx Instructions .Route 11/24/21 Rx .COMPLEX #300 caps tamsulosin 0.4 mg capsule 0.4 mg PO HS #100 caps 11/24/21 Rx ibuprofen 600 mg tablet 600 mg PO Q6H PRN pain #14 tabs 12/09/21 Rx tramadol 50 mg tablet 50 mg PO Q6H PRN pain #10 tabs 12/09/21 Rx Exam Const: General: comfortable, no acute distress, alert and awake HENMT: Head: normocephalic and atraumatic Mouth: Yes Normal oral and palatal mucosa present Eyes: Conjunctivae: conjunctivae normal Pupils: Equal, round and yessi
--- NOTE | 2021-12-09 10:18 | WPDHPUPDATE1 ---
History and Physical Update Update Date/Time: 12/09/21 10:18 History and Physical has been reviewed, including an updated exam of the patient. There are NO changes in the patient's condition. Risks, benefits, and alternatives have been discussed and questions answered. Patient agrees to proceed with procedure.
--- NOTE | 2021-12-09 10:43 | WPDANESEPPF ---
Anes - Initial Pre Proc Eval Procedure: Operation Date: 12/09/21 10:10 Proposed Procedures p Laparoscopic Appendectomy - Jeremy Dixon MD Date/Time: 12/09/21 10:43 Surgeon: Jeremy Dixon MD Pre Op Diagnosis: vomiting,Right lower quadrant abdominal pain Patient Data Age: 86 Gender: M Height: Weight: 97.8 kg Last Vital Signs Temp 37.6 C 12/09/21 06:16 Pulse 85 12/09/21 06:16 Resp 20 12/09/21 06:16 BP 131/56 L 12/09/21 06:16 Pulse Ox 95 12/09/21 06:16 O2 Del Method Room Air 12/09/21 06:16 Allergies Allergy/AdvReac Type Severity Reaction Status Date / Time Heparin Analogues Allergy Severe Heparin Verified 11/18/21 09:08 Analogues ([id number]) Penicillins Allergy Unknown Hives Verified 11/18/21 09:08 hydrocodone AdvReac Unknown hallucinati Verified 11/18/21 09:08 ons adhesive tape AdvReac skin Verified 11/18/21 09:08 blisters codeine AdvReac Hallucinati Verified 11/18/21 09:08 ng Home Medications Medication Instructions Recorded Confirmed Type aspirin 81 mg tablet,delayed 81 mg PO DAILY 05/09/19 11/18/21 History release calcium polycarbophil 625 mg 1,250 mg PO BID 05/09/19 11/18/21 History tablet (Fiber-Tabs) cholecalciferol (vitamin D3) 125 5,000 unit PO DAILY 05/09/19 11/18/21 History mcg (5,000 unit) tablet (Vitamin D3) furosemide 20 mg tablet See Rx Instructions .Route 10/23/21 11/18/21 Rx .COMPLEX #90 tabs hydralazine 10 mg tablet See Rx Instructions .Route 10/23/21 11/18/21 Rx .COMPLEX #180 tabs omeprazole 40 mg capsule,delayed See Rx Instructions .Route 10/23/21 11/18/21 Rx release .COMPLEX #90 caps olmesartan 40 1 tablet PO DAILY #90 tabs 11/18/21 11/18/21 Rx mg-hydrochlorothiazide 12.5 mg tablet simvastatin 10 mg tablet See Rx Instructions .Route 11/18/21 11/18/21 Rx .COMPLEX #90 tabs gabapentin 300 mg capsule See Rx Instructions .Route 11/24/21 Rx .COMPLEX #300 caps tamsulosin 0.4 mg capsule 0.4 mg PO HS #100 caps 11/24/21 Rx Laboratory Tests 12/09/21 12/09/21 12/09/21 07:13 07:13 07:18 WBC 11.5 K/mm3 H K/mm3 (4.5-10.0) RBC 5.34 M/mm3 M/mm3 (4.6-6.20) Hgb 15.8 g/dL g/dL (14.0-18.0) Hct 47.1 % % (42.0-52.0) MCV 88.2 fl fl (80-100) MCH 29.6 pg pg (26-34) MCHC 33.5 g/dl g/dl (32-36) RDW 14.1 % % (11.5-14.5) Plt Count 192 k/mm3 k/mm3 (150-375) MPV 10.1 fl fl (7.4-10.4) Immature Gran % (Auto) 0.3 % % (0-0.5) Neut % (Auto) 96.3 % H % (45.5-73.1) Lymph % (Auto) 1.3 % L % (18.3-44.2) [place] % (Auto) 1.8 % L % (2.6-8.5) Eos % (Auto) 0.1 % % (0-4.4) Baso % (Auto) 0.2 % % (0.2-1.2) Lymph # (Auto) 0.15 K/mm3 L K/mm3 (0.9-3.2) [place] # (Auto) 0.2 K/mm3 K/mm3 (0.1-0.6) Eos # (Auto) 0.0 K/mm3 K/mm3 (0-0.3) Baso # (Auto) 0.0 K/mm3 K/mm3 (0.0-0.1) Abs Immat Gran (auto) 0.04 K/mm3 H K/mm3 (0.00-0.031) Absolute Neuts (auto) 11.1 K/mm3 H K/mm3 (1.3-6.7) Absolute Nucleated RBC 0.0 K/mm3 K/mm3 (0.0-0.012) Nucleated RBC % 0.0 % % (0.0-0.2) Sodium 133 mmol/L L mmol/L (137-145) Potassium 3.8 mmol/L mmol/L (3.4-5.0) Chloride 104 mmol/L mmol/L (98-107) Carbon Dioxide 17 mmol/L L mmol/L (22-30) Anion Gap 12 mmol/L mmol/L (8-16) BUN 21 mg/dL H mg/dL (9-20) Creatinine 1.10 mg/dL mg/dL (0.7-1.3) Estim Creat Clear Calc Not Reportable Estimated GFR > 60 (59 - ) Glucose 139 mg/dL H mg/dL (65-110) Calcium 9.0 mg/dL mg/dL (8.4-10.2) Total Bilirubin 1.0 mg/dL mg/dL (0.2-1.3) AST 27 U/L U/L (17-59) ALT 28 U/L U/L (6-50) Alkaline Phosphatase 100 U/L U/L (38-126) Total
[2021-12-09] MEDS: LACTATED RINGERS 1,000 ML 30 ML IV CONT ×2 (11:00→11:51)
[2021-12-09] MEDS: ceFAZolin 2 GM/D5W 50 ML 2 GM/50 ML BAG IVPB (11:02)
--- NOTE | 2021-12-09 12:06 | P.OP_ITS ---
Procedure Note - Detailed Date of Procedure 12/09/21 Pre-op Diagnosis Acute appendicitis Post-op Diagnosis Same Procedure Performed Laparoscopic appendectomy Surgeon Jeremy Dixon MD Three Dimensional Art Instructor APRIL Hackett. Anesthesia General and Local (0.25% Marcaine with epinephrine) Indications Patient began having right lower quadrant abdominal pain yesterday with nausea and vomiting. This persisted and he came to the emergency room early this morning. He was noted to have tenderness in the right lower [place] [id number] scan showed acute appendicitis. He is taken to surgery now for laparoscopic appendectomy. Findings Patient had an acute non perforated appendicitis mostly at the distal half of the appendix. He also had numerous intra-abdominal adhesions which was surprising considering his only previous abdominal surgery was a laparoscopic cholecystectomy. Description of Procedure Patient was taken to surgery and induced into general anesthesia. The entire abdomen was prepped and draped. Local anesthetic was infiltrated and applied Medical optical trocars were placed in the usual fashion. We had trouble gaining entrance with the initial trocar as there were anterior abdominal wall adhesions especially on the right side. Eventually I was able to find an intraperitoneal location and insufflated. I was then able to navigate beyond the right-sided adhesions and placed the left mid abdominal trocar and left lower quadrant trocar under direct visualization in the more medial aspect of the left side of the abdomen. The patient was then placed in Trendelenburg in the right-side was elevated. He had numerous adhesions in the right lower quadrant as well. I had to take down several ease adhesions to expose the ascending colon. I followed this down to the area of the appendix. Eventually I took down enough adhesions that I was able to see the appendix. I gently grasped the appendix and elevated it. I then carefully took down adhesions to the appendix and to the mesoappendix. I was then able to expose the mesoappendix. I carefully dissected this and cauterized thoroughly the appendiceal artery. The appendiceal artery was then divided. I continued the dissection and skeletonized the base of the appendix. The appendix was ligated at its base with a Vicryl endoloop. I then divided the appendix just above the ligature with the cautery and cauterized the mucosa of the appendiceal stump. Appendix was placed immediately in an Endo-Catch bag. It was extricated through the 10 11 left lower quadrant trocar. The trocar was then replaced. We reviewed the area of dissection and the appendiceal stump. There was some clotted blood in the area which I evacuated. The appendiceal stump looked good. I then irrigated and suctioned the area repeatedly looking for any sign of bleeding or other problems. None was seen. I then used the Beau cone and Beau-Jaycee suture pass device. An 0 Vicryl suture was used to close the fascia at the 10 11 trocar in the left lower abdomen. We then evacuated CO2 and removed the trocar sleeves. All skin wounds were closed with subcuticular 4-0 Monocryl skin suture. The wounds were dressed with Exofin surgical adhesive. Patient was awakened and taken to recovery in good condition. Sponge needle counts were correct x2. Estimated Blood Loss -20 Drains No Packing No Pathology Yes (Appendix) Complications No immediate complications Condition Stable Disposition PACU [facility] Billing Surgery - Charge Forward: Surgery Billing (Laparoscopic appendectomy)
== END 2021-12-09 13:33 | disposition home or self-care (01) ==
LOC: ANHED 09:49 → ANHSURGERY 09:52
PROVIDERS: Emergency Medicine; Emergency Provider Emergency Medicine; PCP Family Medicine; Visit Provider Surgery
PROC: 0DTJ4ZZ Resection of Appendix, Percutaneous Endoscopic Approach (ICD-10-PCS; CPT 44970; principal; 2021-12-09 10:10)
DX: I25.10 Atherosclerotic heart disease of native coronary artery without angina pectoris (principal); K66.0 Peritoneal adhesions (postprocedural) (postinfection); E78.2 Mixed hyperlipidemia; I48.0 Paroxysmal atrial fibrillation; I44.1 Atrioventricular block, second degree; I11.0 Hypertensive heart disease with heart failure; I50.9 Heart failure, unspecified; G47.33 Obstructive sleep apnea (adult) (pediatric); R73.03 Prediabetes; Z79.82 Long term (current) use of aspirin; Z95.1 Presence of aortocoronary bypass graft; Z85.118 Personal history of other malignant neoplasm of bronchus and lung; Z90.2 Acquired absence of lung [part of]; Z87.891 Personal history of nicotine dependence; K35.80 Unspecified acute appendicitis; Z20.822 Contact with and (suspected) exposure to COVID-19
CPT/HCPCS: 44970; 36415; 71045; 74177; 80053; 83690; 85025; 88304; 93005; C9803; J0330; J0690; J1100; J2405; J2704; J3010; J7030; J7120; Q9967; U0003; U0005

== ENCOUNTER 2022-05-06 15:46 | Outpatient (CLI) | payer OTHER, SELFPAY ==
--- NOTE | ~2022-05-06 | XR_ITS ---
EXAM: XR thoracic spine 3V DATE: 05/06/2022 16:24 HISTORY: R10.9 - Unspecified abdominal pain SINCE December, . COMPARISON: None available. FINDINGS: Intact sternotomy wires. Partially visualized pacing wires. Multiple surgical clips and sof t tissue anchors over the midline chest. Likely cholecystectomy clips. The upper thoracic spine is ve ry poorly visualized in the lateral view and only slightly better seen in the frontal view. Incomplet e visualization of the thoracolumbar junction. Severe osteopenia which limits sensitivity. Vertebral body alignment intact. Mild exaggerated thoracic kyphosis. Vertebral body heights preserved. Multilev el mild disc space narrowing. No traumatic malalignment or fracture. Visualized lung parenchyma is cl ear. Emphysematous and senescent changes in the lungs IMPRESSION: Limited study as detailed above. Multilevel mild degenerative disc disease. Reviewed, dictated and finalized at location K. WRITER TESTER
== END 2022-05-06 15:47 | disposition home or self-care (01) ==
PROVIDERS: PCP Family Medicine; Visit Provider Family Medicine
DX: R10.9 Unspecified abdominal pain (principal); M51.36 Other intervertebral disc degeneration, lumbar region
CPT/HCPCS: 72072